=== PATIENT | male | born 1930 | race Caucasian/White ===

== ENCOUNTER → 2020-10-20 | Outpatient (CLI) | payer MEDICARE ==
--- NOTE | 2020-10-20 16:12 | Diagnostic Imaging Report ---
PROCEDURE: MR imaging of the brain without contrast. TECHNIQUE: Multiplanar, multisequence MR imaging of the brain was performed without contrast. INDICATION: Memory loss. Ventricles and sulci are diffusely prominent. There is [id number] increased T2 signal within the deep white matter of both cerebral hemispheres. In addition, there is gyral and subcortical increased T2 signal in the posterior aspect of the left temporal lobe. This demonstrates mild associated restricted diffusion. There is no abnormal mass effect or shift of midline structures. Expected flow voids are seen at the skull base. There is partially empty sella turcica. IMPRESSION: Restricted diffusion in the left posterior temporal region may reflect subacute infarct in watershed distribution. No associated hemorrhage or loss of cerebral arterial flow void is identified. Dictated by: Dictated on workstation # [id number]
== END ==
LOC: RAD 14:45
PROVIDERS: ATTEND Nurse Practitioner Family
DX: R41.3 Other amnesia (principal)
CPT/HCPCS: 70551

== ENCOUNTER → 2020-11-06 | Outpatient (CLI) | payer MEDICARE ==
--- NOTE | 2020-11-06 14:56 | Diagnostic Imaging Report ---
CLINICAL INDICATION: Patient with memory loss, syncope, and recent left cerebral hemisphere infarct. COMPARISON: MRI of the brain without contrast dated 10/20/2020. EXAM: Real-time carotid Doppler duplex imaging is performed bilaterally. Peak systolic velocity, ICA/CCA peak systolic ratio, spectral analysis, and vascular morphology are studied. FINDINGS: ARTERY VELOCITY Right Left CCA 0.47 m/s 1.02 m/s ICA 4.53 m/s 2.03 m/s ECA 1.78 m/s 0.80 m/s ICA/CCA 9.6 2.0 VERT.ART Antegrade Antegrade There are significantly elevated peak systolic velocities involving the proximal cervical ICA, mid cervical ICA and proximal left cervical ICA with measurements of 4.53 m/s, 2.62 m/s, and 2.03 m/s, respectively. There also slightly elevated peak systolic velocities involving the left mid ICA and distal left ICA at 1.6 cm/s 1.48 m/s, respectively. The bilateral vertebral arteries were unable to be visualized on this exam and occlusion may be considered. There is heterogeneous atherosclerotic disease involving the bilateral carotid arteries. IMPRESSION: 1: The bilateral cervical vertebral arteries are not visualized and may possibly be occluded. CT angiogram of the head and neck is suggested for further evaluation. 2: There are elevated velocities involving the proximal and mid cervical right ICA suggesting greater than 70% stenosis, but less than near occlusion. 3: There are elevated velocities involving the proximal cervical left ICA, mid left ICA and distal left ICA suggesting 50-69% stenosis. The proximal cervical left ICA demonstrates the most significant stenosis involving the cervical left ICA. 4: Elevated velocities involving the right ECA suggesting 50-69% stenosis. A telephone message was left with the ordering physician's office via the telephone on 11/06/2020 at [address] Winter Wallace at 2:54 p.m. at 2:55 p.m. Dictated by: Dictated on workstation # [id number]
== END ==
LOC: RAD 12:00
PROVIDERS: ATTEND Family Medicine
DX: I63.442 Cerebral infarction due to embolism of left cerebellar artery (principal)
CPT/HCPCS: 93880

== ENCOUNTER → 2020-11-10 | Outpatient (CLI) | payer MEDICARE ==
[~2020-11-10] MED LIST: CATHETER FLUSH 10 ML SYR IV PRN; HOLD METFORMIN - RECEIVED CONTRAST 20 ML VIAL IV SCH; IOHEXOL 350 MG/ML 100 ML (OMNIPAQUE 350) VIAL IV ONE; NS 100 ML (IVPB) BAG IV ONE
--- NOTE | 2020-11-10 15:30 | Diagnostic Imaging Report ---
PROCEDURE: CT angiography of the head and CT angiography of the neck with and without contrast. TECHNIQUE: Contiguous noncontrast images were obtained from the skull base through the vertex. After intravenous contrast administration, helical CT angiography of the neck was performed. Source data was reformatted into 3D MIP projections. Delayed post contrast acquisition was also obtained. Auto Exposure Controls were utilized during the CT exam to meet ALARA standards for radiation dose reduction. INDICATION: Abnormal carotid Doppler with elevated velocities. Study was performed for further evaluation. COMPARISON: Correlation is made with carotid Doppler study from 11/06/2020. FINDINGS: CTA head: Precontrast images demonstrate prominence of the ventricles and sulci consistent with cerebral atrophy. There is an area of encephalomalacia in the left posterior parietal lobe suggestive of prior infarct. There is no midline shift or hemorrhage detected. Cisterns are patent. There is some mild mucosal thickening in the left maxillary sinus. Delayed postcontrast imaging through the brain is without abnormal enhancement. CT angiographic portion of the study does show some calcified plaque in the carotid siphons, bilaterally. Middle cerebral arteries are widely patent. Bilateral anterior cerebral arteries are widely patent. The posterior cerebral arteries appear to be patent. There is a patent P-comm on the left with hypoplastic left P1 segment. CTA neck: The right common carotid artery appears to be widely patent. There is a high-grade stenosis of the proximal right internal carotid artery correlating with the elevated velocities noted on ultrasound. Only a string of flow is seen in the proximal right ICA. The internal carotid artery distal to this location appears to be widely patent. The left common carotid artery appears to be widely patent. There is moderate amount of plaque in the proximal left ICA with approximately 50% diameter stenosis. No high-grade stenosis is seen. Neither vertebral artery is identified in its proximal extent. There is a long segment of significant luminal narrowing involving the right vertebral artery commencing at C5 and extending to C2-C3 level. The vertebral artery at this level does obtain a normal diameter. The left vertebral artery also demonstrates a very small diameter at the level of C4-C5 extending to the skull base. The distal left vertebral artery maintains a very small caliber. IMPRESSION: 1. 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 2. Mild to moderate stenosis of proximal left ICA, approximately 50%. 3. No large branch occlusion intracranially is identified. 4. Included vertebral arteries, bilaterally, in the proximal aspect; however, these reconstitute at the level of the mid cervical spine where there is persistent marked luminal diameter throughout the remainder of the left vertebral artery to the basilar artery. There is a segment of significant luminal narrowing of the right vertebral artery, however, the right vertebral artery does achieve normal diameter at approximately the level of C3. 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 No other significant abnormality is seen. Dictated by: Dictated on workstation # [id number]
== END ==
LOC: RAD 13:06
PROVIDERS: ATTEND Family Medicine
DX: I25.10 Atherosclerotic heart disease of native coronary artery without angina pectoris (principal)
CPT/HCPCS: 70496; 70498